=== PATIENT | male | born 1970 | race Caucasian/White ===

== ENCOUNTER 2020-07-07 10:42 | Outpatient (CLI) | payer BC, SELFPAY ==
--- NOTE | ~2020-07-07 | US_ITS ---
US abdomen complete EXAMINATION: US Abdomen Complete INDICATION: Nausea, vomiting and diarrhea. Weight loss. Loss of appetite. PROCEDURE: Realtime High Resolution abdomen ultrasound. COMPARISON: No prior studies for comparison FINDINGS: Gallbladder within normal limits. No gallstones, pericholecystic fluid, gallbladder wall t hickening or biliary dilatation. There is a 3 mm gallbladder polyp. Common bile duct measures mm. Liver echotexture within normal limits without focal mass. Pancreas within normal limits. Pancreati c tail is obscured by bowel gas. Spleen is unremarkeable. Renal echotexture is within normal limits bilaterally without hydronephrosis, contour deforming mass or renal stone. Right kidney measures 11 c m. Left kidney measures 11.9 cm. Visualized aspects of the aorta and IVC are within normal limits. Portal vein is patent. No sonograph ic Mccracken's sign indicated by the technologist. IMPRESSION: 1: 3 mm gallbladder polyp. Reviewed, dictated and finalized at location A. GO MIXER IMPRESSION: 1: 3 mm gallbladder polyp.
== END 2020-07-07 10:43 ==
PROVIDERS: PCP Nurse Practitioner Family; Visit Provider Nurse Practitioner Family
DX: R11.2 Nausea with vomiting, unspecified (principal); R19.7 Diarrhea, unspecified; K82.4 Cholesterolosis of gallbladder
CPT/HCPCS: 76700

== ENCOUNTER 2020-08-06 07:32 | Outpatient (CLI) | payer BC, SELFPAY ==
--- NOTE | ~2020-08-06 | CT_ITS ---
EXAMINATION: CT abdomen wo con DATE: 08/06/2020 08:23 INDICATION: Nausea, vomiting, diarrhea and weight loss TECHNIQUE: Computed tomography (CT) of the abdomen was performed without intravenous contrast. Automa esdras exposure control and iterative reconstruction technique were employed. Exam dose: 362.81 mGy-cm total exam DLP. COMPARISON: 07/07/2020 limited abdominal ultrasound examination FINDINGS: There is a 3 mm posterolateral right lower lobe pleural-based opacity (series 4 image 18). There is a 2.6 x 5 mm pleura-based opacity in the anterolateral right lower lobe (image 23). There is a pleural-based posteromedial right lower lobe paraspinal 7.6 mm soft tissue lung mass (imag e 24). No infiltrate or consolidation is noted in the lower lung zones. Normal heart size. No pericardial or pleural effusion. The liver, gallbladder, bile ducts, pancreas, pancreatic duct, spleen, and adrenal glands and kidneys are unremarkable on this limited noncontrast examination. No urinary tract calculus or hydroureteron ephrosis is evident. Normal caliber of the abdominal aorta. No bowel obstruction, bowel wall thickening, pneumatosis or intraperitoneal free air is detected. There is a very small fat-containing umbilical hernia. Included skeletal structures are unremarkable. IMPRESSION: Several right lower lobe pleural-based small opacities are noted. If there are no risk f actors such as smoking or radon exposure, consider [address] chest follow-up. If there are positive risk factors, [address] chest follow-up is recommended. Reviewed, dictated and finalized at Location A. Reviewed, dictated and finalized at location B. DESK ASSOCIATE IMPRESSION: Several right lower lobe pleural-based small opacities are noted. If there are no risk factors such as smoking or radon exposure, consider [address] chest follow-up. If there are positive risk factors, [address] chest fol low-up is recommended.
== END 2020-08-06 07:33 ==
PROVIDERS: PCP Nurse Practitioner Family; Visit Provider Nurse Practitioner Family
DX: R11.2 Nausea with vomiting, unspecified (principal); R91.8 Other nonspecific abnormal finding of lung field
CPT/HCPCS: 74150

== ENCOUNTER 2024-10-06 14:44 | Emergency (ER) | payer OTHER, SELFPAY ==
--- NOTE | ~2024-10-06 | CT_ITS ---
CT abdomen pelvis w con Ordering provider: José Goodman MD History: 53 years Male with . Abdominal pain . Comparison: August 06, 2023 Technique: CT abdomen and pelvis with IV and without oral contrast. Automated exposure control and it erative reconstruction technique were employed. The dose-length product was 940.26 mGy-cm. 100 mL Omn ipaque 350 was given IV. Findings: VISUALIZED LOWER CHEST: Nodule in the right lower lobe medially measuring 8 mm. 7 mm nodule also seen in the lingula. 3 months follow-up CT is advised. Dependent atelectatic changes. UPPER ABDOMINAL ORGANS: Liver: Normal. Gallbladder: Normal. Spleen: Normal. Stomach/duodenum: Normal. Pancreas: Normal. Adrenals: Normal. Kidneys: 9 mm cyst is seen in the left kidney midpole. Tiny cysts are also seen in the right kidney u pper pole with the largest measures 1 cm. Tiny cysts also seen in the right mid and lower pole. PELVIC ORGANS: The bladder is underfilled. Thickened wall is seen. Evaluation for cystitis advised. BOWEL AND MESENTERY: Colon: No evidence of diverticulitis. No evidence of appendicitis. Small Bowel: Normal. No obstruction. Peritoneum/mesentery: No free air or free fluid. No mesenteric lymphadenopathy. Small mesenteric lymp h nodes are noted. RETROPERITONEUM: Normal aorta. No retroperitoneal lymphadenopathy. MUSCULOSKELETAL: Superficial soft tissues: The superficial soft tissues are normal. Bones: Age appropriate degenerative changes of the spine. IMPRESSION: 1. No evidence of appendicitis, diverticulitis or intestinal obstruction. 2. Lung nodules with the largest measures 8 mm. 3 months follow-up CT in 6 months advised. Reviewed, dictated and finalized at location A. OWNED SALES CONSULTANT IMPRESSION: 1. No evidence of appendicitis, diverticulitis or intestinal obstruction. 2. Lung nodules with the largest measures 8 mm. 3 months follow-up CT in 6 mon ths advised.
[2024-10-06 14:56] LABS: Glucose Point of Care 111 mg/dl (65-105)
[2024-10-06 15:15] VITALS: BP 171/102; PULSE 84; RESP 18; TEMP 36.6; O2SAT 98
--- OUTSIDE RECORDS SUMMARY | 2024-10-06 16:05 | XMS_ITS | Clinical Summary ---
Author Organization [facility] Address [address] [place] [address] Care Team Providers Care Therapist Physical Name Role Phone Unavailable Primary Care Provider Unavailabl e Source Comments [facility],non-owned Affiliates and Associated Physician Practices is amultiple site organization consisting of ambulatory clinics and hospital sitesin [place], [place], [place] and [place]. This disclosure is being madepursuant to the Care Everywhere program and may not contain all information available regarding this patient. Last updated 18.[facility] Allergies No known active allergies Medications * Be aware that medications may not be up to date on this document. Alwaysverify current medications with the patient. Medication Sig Dispensed Refills Start Date End Date Status ondansetron (ZOFRAN) 4 MG tablet Take 1 (one) tablet by mouth every 6 hours as needed for Nausea/Vomiting 60 tablet 3 11/20/2020 Active Active Problems Problem Noted Date Diagnosed Date Loss of weight 11/20/2020 Nausea & vomiting 11/20/2020 Resolved Problems Problem Noted Date Diagnosed Date Resolved Date Diarrhea 11/20/2020 12/18/2020 Family History Medical History Relation Name Comments COPD - Chronic Obstructive Pulmonary Disease Father 57 COPD - Chronic Obstructive Pulmonary Disease Mother 68 Drug Abuse Sister 30 Relation Name Status Comments Daughter 21 Alive Father 57 Maternal Grandfather Maternal Grandmother Mother 68 Paternal Grandfather Paternal Grandmother Sister 30 Son 30 Alive Social History Tobacco Use Types Packs/Day Years Used Date Smoking Tobacco: Never Smokeless Tobacco: Never Tobacco Cessation:Counseling Given: No Alcohol Use Standard Drinks/Week Comments Never 0 (1 standard drink = 0.6 oz pur e alcohol) STOPPED DRINKING 3 YRS AGO Sex and Gender Information Value Date Recorded Sex Assigned at Not on file Gender Identity Not on file Sexual Orientation Not on file Last Filed Vital Signs Vital Sign Reading Time Taken Comments Blood Pressure 118/76 11/20/2020 9:15 AM CDT Pulse 53 11/20/2020 9:15 AM CDT Temperature 36.8 C (98.2 F) 11/20/2020 9:15 AM CDT Respiratory Rate 16 11/20/2020 9:15 AM CDT Oxygen Saturation 97% 11/20/2020 9:15 AM CDT Inhaled Oxygen Concentration - - Weight 85 kg (187 lb 4.8 oz) 11/20/2020 9:15 AM CDT Height 180.3 cm (5' 11 ) 11/20/2020 9:15 AM CDT Body Mass Index 26.12 11/20/2020 9:15 AM CDT Plan of Treatment Health Maintenance Due Date Last Done Comments COLOGUARD (AGES 45-75) - COL ON CA SCREENING 1972 COLON MONITORING 1972 COLONOSCOPY - COLON CA SCREENING 1972 CT COLONOGRAPHY - COLON CA SCREENING 1972 Colorectal Cancer Screening 1972 FIT - COLON CA SCREENING 1972 FLEX SIG - COLON CA SCREENING 1972 LIPID TESTING 1972 HIV SCREENING 10/23/1987 HEPATITIS C SCREENING 10/18/1990 DTAP/TDAP/TD VACCINES (1 - Tdap) 10/23/1991 HEPATITIS B VACCINE (1 of 3 - 19+ 3-dose series) 10/23/1991 PNEUMOCOCCAL VACCINE 50+ (1 of 1 - PCV) 2022 ZOSTER VACCINE (1 of 2) 2022 SCREENING FOR DIABETES 11/21/2023 11/20/2020 COVID-19 VACCINE (1 - 2023-2 5 season) 2024 INFLUENZA VACCINE (#1) 2024 06/26/2020 DEPRESSION SCREENING 08/03/2024 HIB VACCINE Aged Out No longer eligi ble based on patient's age to complete this topic HPV VACCINE Aged Out No longer eligi ble based on patient's age to complete this topic MENINGOCOCCAL (Group B) VACCINE Aged Out No longer eligible based on patient's age to complete this topic MENINGOCOCCAL VACCINE Aged Out No berenice leah eligible based on patient's age to complete this topic PNEUMOCOCCAL VACCINE Aged Out No long er eligible based on patient's age to complete this topic Procedures Procedure Name Priority Date/Time Associated Diagnosis Comments COMPREHENSIVE METABOLIC PANEL Routine 11/20/2020 10:50 AM CDT Loss of weight Abdominal pain, unspecified abdominal location Nausea and vomiting, intractability of vomiting not specified, unspecified vomiting type from Last 3 Months or Most Recently Relevant to Health Maintenance Results * COMPREHENSIVE METABOLIC PANEL (11/20/2020 10:50 AM CDT) Pathologist [facility] Glucose 103 65 - 139 mg/dL [facility] Comment: Non-fasting reference interval BUN 8 7 - 25 mg/dL [facility] Creatinine 0.75 0.60 - 1.35 mg/dL [facility] eGFR by MDRD 108 > OR = 60 mL/min/1 .73m2 [facility] eGFR by MDRD 126 > OR = 60 mL/min/1 .73m2 [facility] BUN/Creatinine Ratio NOT APPLICABLE 6 - 22 (calc) [facility] Sodium 138 135 - 146 mmol/L [facility] Potassium 4.6 3.5 - 5.3 mmol/L [facility] Chloride 105 98 - 110 mmol/L [facility] CO2 29 20 - 32 mmol/L [facility] Calcium 9.4 8.6 - 10.3 mg/dL [facility] Protein Total 6.9 6.1 - 8.1 g/dL [facility] Albumin 4.5 3.6 - 5.1 g/dL [facility] Globulin Total 2.4 1.9 - 3.7 g/dL (calc) [facility] Albumin/Globulin Ratio 1.9 1.0 - 2.5 (calc) [facility] Bilirubin Total 0.5 0.2 - 1.2 mg/dL [facility] Alkaline Phosphatase 51 36 - 130 U/L [facility] AST 18 10 - 40 U/L [facility] ALT 20 9 - 46 U/L [facility] Comment: Test Performed at: [employer] [address] GEOFF CUETO MD Blood BLOOD SPECIMEN / Unknown 11/20/2020 10:50 AM CDT 11/20/2020 10:54 AM CDT Bonnie Juarez PA-C LAB - CHEMISTRY O RDERABLES [address] [address] from Last 3 Months or Most Recently Relevant to Health Maintenance
--- OUTSIDE RECORDS SUMMARY | 2024-10-06 16:05 | XMS_ITS | Referral Summary ---
Author Organization [facility] Address [address] [place] [address] Care Team Providers Care Ivory Carver Name Role Phone Unavailable Primary Care Provider Unavailabl e Source Comments [facility],non-owned Affiliates and Associated Physician Practices is amultiple site organization consisting of ambulatory clinics and hospital sitesin [place], [place], [place] and [place]. This disclosure is being madepursuant to the Care Everywhere program and may not contain all information available regarding this patient. Last updated 18.[facility] Allergies No known active allergies Medications * [...] Diagnosed Date Resolved Date Diarrhea 11/20/2020 12/18/2020 Social History Tobacco Use Types Packs/Day Years [...] 11/20/2020 9:15 AM CDT Plan of Treatment Not on file Procedures Procedure Name Priority Date/Time Associated Diagnosis Comments COMPREHENSIVE METABOLIC PANEL Routine 11/20/2020 10:50 AM CDT Loss of weight Abdominal pain, unspecified abdominal location Nausea and vomiting, intractability of vomiting not specified, unspecified vomiting type from Last 3 Months or Most Recently Relevant to Health Maintenance Results * COMPREHENSIVE METABOLIC PANEL (11/20/2020 10:50 AM CDT) Glucose 103 65 - 139 mg/dL [facility] [...] 46 U/L [facility] Comment: Test Performed at: [facility] [address] GEOFF CUETO MD Blood BLOOD SPECIMEN / Unknown 11/20/2020 10:50 AM CDT 11/20/2020 10:54 AM CDT Bonnie Juarez PA-C LAB - CHEMISTRY O RDERABLES [facility] [address] [place] [address] from Last 3 Months or Most Recently Relevant to Health Maintenance
--- OUTSIDE RECORDS SUMMARY | 2024-10-06 16:05 | XMS_ITS | CONTINUITY OF CARE DOCUMENT ---
Author Name guerda croft Address Unknown Organization [facility] Address [address] [place] [address] Phone [phone] Care Team Providers Care Rotary Cutter Name Role Phone Neel LOGAN, Lara Unavailable [phone] JOSUE RING MD Unavailable INS[employer] Payer name Policy type / Coverage type [place] red green party ID [id number] PAY [id number]
--- OUTSIDE RECORDS SUMMARY | 2024-10-06 16:05 | XMS_ITS | Patient Health Summary ---
Author Organization [facility] Address [address] [place] [address] Care Team Providers Care Cage Maker Machine Name Role Phone Unavailable Primary Care Provider Unavailabl e Note from [facility],non-owned Affiliates and Associated Physician Practices is amultiple site organization consisting of ambulatory clinics and hospital sitesin [place], [place], [place] and [place]. This disclosure is being madepursuant to the Care Everywhere program and may not contain all information available regarding this patient. Last updated 18.[facility] Allergies No known active allergies Medications * Be aware that medications may not be up to date on this document. Alwaysverify current medications with the patient. * ondansetron (ZOFRAN) 4 MG tablet(Started 11/20/2020) Take 1 (one) tablet by mouth every 6 hours as needed for Nausea/Vomiting 3 refills by 11/20/2021 Active Problems Problem Noted Date Diagnosed Date [...] Mass Index 26.12 11/20/2020 9:15 AM CDT Procedures * VITAMIN B12 FOLATE PANEL(Performed 11/20/2020) Performed for Loss of weight, Abdominal pain, unspecified abdominal location, Nausea and vomiting, intractability of vomiting not specified, unspecified vomiting type, Diarrhea, unspecified type * IRON + TIBC + FERRITIN(Performed 11/20/2020) Performed for Loss of weight, Abdominal pain, unspecified abdominal location, Nausea and vomiting, intractability of vomiting not specified, unspecified vomiting type, Diarrhea, unspecified type * AMYLASE BLOOD(Performed 11/20/2020) Performed for Loss of weight, Abdominal pain, unspecified abdominal location, Nausea and vomiting, intractability of vomiting not specified, unspecified vomiting type * TISSUE TRANSGLUTAMINASE AB IGA(Performed 11/20/2020) Performed for Loss of weight, Abdominal pain, unspecified abdominal location, Nausea and vomiting, intractability of vomiting not specified, unspecified vomiting type * IGA BLOOD(Performed 11/20/2020) Performed for Loss of weight, Abdominal pain, unspecified abdominal location, Nausea and vomiting, intractability of vomiting not specified, unspecified vomiting type * ERYTHROCYTE SEDIMENTATION RATE(Performed 11/20/2020) Performed for Loss of weight, Abdominal pain, unspecified abdominal location, Nausea and vomiting, intractability of vomiting not specified, unspecified vomiting type * C-REACTIVE PROTEIN(Performed 11/20/2020) Performed for Loss of weight, Abdominal pain, unspecified abdominal location, Nausea and vomiting, intractability of vomiting not specified, unspecified vomiting type * COMPREHENSIVE METABOLIC PANEL(Performed 11/20/2020) Performed for Loss of weight, Abdominal pain, unspecified abdominal location, Nausea and vomiting, intractability of vomiting not specified, unspecified vomiting type * CBC W AUTO DIFFERENTIAL(Performed 11/20/2020) Performed for Loss of weight, Abdominal pain, unspecified abdominal location, Nausea and vomiting, intractability of vomiting not specified, unspecified vomiting type Results * IRON + TIBC + FERRITIN (11/20/2020 10:50 AM CDT) Pathologist [facility] Iron 106 50 - 180 mcg/dL [facility] TIBC 394 250 - 425 mcg/dL (calc) [facility] % Saturation 27 20 - 48 % (calc) [facility] Ferritin 43 38 - 380 ng/mL [facility] Comment: Test Performed at: [employer] [facility] [place] [address] [place] [address] JASEN NAIK DO,MPH Blood BLOOD SPECIMEN / Unknown 11/20/2020 10:50 AM CDT 11/20/2020 10:52 AM CDT Bonnie Juarez PA-C LAB - CHEMISTRY O RDERABLES Performing Organization Address [facility] Co de Phone Number [address] [address] * (ABNORMAL) TISSUE TRANSGLUTAMINASE AB IGA (11/20/2020 10:50 AM CDT) [facility] TTG Antibody IgA 4(H) <4 U/mL [facility] Comment: Value Interpretation <4 U/mL: No Antibody Detected >or=4 U/mL: Antibody Detected Test Performed at: [employer]/[facility] [id number] [place] [id number] JONATHAN CARVAJAL MD,PHD Blood BLOOD SPECIMEN / Unknown 11/20/2020 10:50 AM CDT 11/20/2020 10:54 AM CDT Bonnie Juarez PA-C LAB - SEROLOGY OR DERABLES Performing Organization Address [facility] Co de Phone Number [address] [address] * C-REACTIVE PROTEIN (11/20/2020 10:50 AM CDT) [facility] C-Reactive Protein <5.0 <8.0 mg/L [facility] Comment: Test Performed at: [employer] [facility] [address] GEOFF CUETO MD Blood BLOOD SPECIMEN / Unknown 11/20/2020 10:50 AM CDT 11/20/2020 10:54 AM CDT Bonnie Juarez PA-C LAB - CHEMISTRY O RDERABLES Performing Organization Address [facility] de Phone Number [address] [address] * ERYTHROCYTE SEDIMENTATION RATE (11/20/2020 10:50 AM CDT) Pathologist [facility] Erythrocyte Sedimentation Rate Westergren 8 < OR = 15 mm/h [facility] Comment: Test Performed at: [employer] [facility] [address] GEOFF CUETO MD Blood BLOOD SPECIMEN / Unknown 11/20/2020 10:50 AM CDT 11/20/2020 10:54 AM CDT Bonnie Juarez PA-C LAB - HEMATOLOGY ORDERABLES Performing Organization Address [facility] de Phone Number [address] [address] * CBC WITH DIFFERENTIAL (11/20/2020 10:50 AM CDT) Pathologist [facility] White Blood Cell Count 4.2 3.8 - 10.8 Thousand/u L [facility] RBC 4.84 4.20 - 5.80 Million/uL [facility] Hemoglobin 14.5 13.2 - 17.1 g/dL [facility] Hematocrit 44.2 38.5 - 50.0 % [facility] MCV 91.3 80.0 - 100.0 fL [facility] MCH 30.0 27.0 - 33.0 pg [facility] MCHC 32.8 32.0 - 36.0 g/dL [facility] RDW 12.6 11.0 - 15.0 % [facility] Platelet Count 305 140 - 400 Thousand/u L [facility] MPV 9.8 7.5 - 12.5 fL [facility] Neutrophil Absolute 2822 1500 - 7800 cells/uL [facility] Lymphocytes Absolute 983 850 - 3900 cells/uL [facility] Absolute Monocytes 319 200 - 950 cells/uL [facility] Eosinophils Absolute 38 15 - 500 cells/uL [facility] Basophils Absolute 38 0 - 200 cells/uL [facility] Granulocytes % 67.2 % [facility] Lymphocytes % 23.4 % [facility] Monocytes % 7.6 % [facility] Eosinophils % 0.9 % [facility] Basophils % 0.9 % [facility] Comment: Test Performed at: [facility] [address] GEOFF CUETO MD Blood BLOOD SPECIMEN / Unknown 11/20/2020 10:50 AM CDT 11/20/2020 10:54 AM CDT Bonnie Juarez PA-C LAB - HEMATOLOGY ORDERABLES [address] [address] * COMPREHENSIVE METABOLIC PANEL (11/20/2020 10:50 AM [...] 46 U/L [facility] Comment: Test Performed at: [facility] [address] GEOFF CUETO MD Blood BLOOD SPECIMEN / Unknown 11/20/2020 10:50 AM CDT 11/20/2020 10:54 AM CDT Bonnie Juarez PA-C LAB - CHEMISTRY O RDERABLES Performing Organization Address [facility] Co de Phone Number [facility] [id number] [place] [address] * VITAMIN B12 FOLATE PANEL (11/20/2020 10:50 AM CDT) Vitamin B12 311 200 - 1100 pg/mL [facility] Comment: Please Note: Although the reference range for vitamin B12 is 200-1100 pg/mL, it has been reported that between 5 and 10% of patients with values between 200 and 400 pg/mL may experience neuropsychiatric and hematologic abnormalities due to occult B12 deficiency; less than 1% of patients with values above 400 pg/mL will have symptoms. Folate 16.2 ng/mL [facility] Comment: Reference Range Low: <3.4 Borderline: 3.4-5.4 Normal: >5.4 REPORT COMMENT: FASTING:NO Test Performed at: [facility] [place] [address] [place] [address] JASEN NAIK DO,MPH Blood BLOOD SPECIMEN / Unknown 11/20/2020 10:50 AM CDT 11/20/2020 10:52 AM CDT Bonnie Juarez PA-C LAB - CHEMISTRY O RDERABLES Performing Organization Address [facility] de Phone Number [facility] [address] [place] [address] * AMYLASE BLOOD (11/20/2020 10:50 AM CDT) Amylase 35 21 - 101 U/L [facility] Comment: REPORT COMMENT: FASTING:NO Test Performed at: [facility] [address] GEOFF CUETO MD Blood BLOOD SPECIMEN / Unknown 11/20/2020 10:50 AM CDT 11/20/2020 10:54 AM CDT Bonnie Juarez PA-C LAB - CHEMISTRY O RDERABLES Performing Organization Address [facility] Co de Phone Number [facility] [address] [place] [address] * IGA BLOOD (11/20/2020 10:50 AM CDT) IgA 195 47 - 310 mg/dL [facility] Comment: Test Performed at: [facility] [address] [address] JASEN NAIK DO,MPH Blood BLOOD SPECIMEN / Unknown 11/20/2020 10:50 AM CDT 11/20/2020 10:54 AM CDT Bonnie Juarez PA-C LAB - CHEMISTRY O RDERABLES [facility] [address] [place] [address]
[2024-10-06 17:29] VITALS: BP 147/102; PULSE 71; TEMP 36.6; O2SAT 96
[2024-10-06 19:41] LABS: Eosinophils Absolute Auto 0.1 K/mm3 (0-0.3); Eosinophils Percent Auto 1.9 % (0-4.4); Hematocrit 42.1 % (42.0-52.0); Hemoglobin 14.2 g/dL (14.0-18.0); Immature Granulocyte Absolute 0.01 K/mm3 (0.00-0.031); Immature Granulocyte Percent A 0.2 % (0-0.5); Lymphocytes Absolute Auto 1.69 K/mm3 (0.9-3.2); Lymphocytes Percent Auto 40.3 % (18.3-44.2); Mean Corpuscular HGB Conc 33.7 g/dl (32-36); Mean Corpuscular Hemoglobin 31.6 pg (26-34); Mean Corpuscular Volume 93.6 fl (80-100); Mean Platelet Volume 9.3 fl (7.4-10.4); Monocytes Absolute Auto 0.3 K/mm3 (0.1-0.6); Monocytes Percent Auto 7.2 % (2.6-8.5); Neutrophils Absolute Auto 2.1 K/mm3 (1.3-6.7); Neutrophils Percent Auto 49.4 % (45.5-73.1); Platelet Count Result 254 k/mm3 (150-375); Red Cell Distribution Width 12.6 % (11.5-14.5); White Blood Count 4.2 K/mm3 (4.5-10.0)
[2024-10-06 19:51] LABS: Alanine Aminotransferase 32 U/L (6-50); Albumin Level 4.4 g/dL (3.5-5.1); Alkaline Phosphatase 65 U/L (38-126); Anion Gap 13 mmol/L (4-12); Aspartate Amino Transferase 27 U/L (17-59); Blood Urea Nitrogen 16 mg/dL (9-20); Calcium 9.5 mg/dL (8.4-10.2); Carbon Dioxide 25 mmol/L (22-30); Chloride 100 mmol/L (98-107); Estimated CRCL calculation 97 ml/min; Estimated Glomerular Filt Rate > 60; Glucose 164 mg/dL (65-110); Lipase 74 U/L (23-300); Potassium 3.9 mmol/L (3.4-5.0); Sodium 138 mmol/L (137-145)
[2024-10-06 19:56] VITALS: BP 151/94; PULSE 72; RESP 12; TEMP 36.5; O2SAT 98
[2024-10-06 19:58] LABS: Add Urine Microscopic? NO; Appearance Urine Clear (Clear); Bilirubin Urine Negative (Negative); Blood Urine Negative (Negative); Color Urine Yellow (Yellow); Glucose Urine UA Negative (Negative); Ketones Urine Trace mg/dL (Negative); Leukocyte Esterase Ur Negative LEU/UL (Negative); Nitrate Urine Negative (Negative); Protein Urine Negative (Negative); Specific Grav Ur 1.026 (1.001-1.035); Urobilinogen Urine 0.2 mg/dL (<2.0)
--- OUTSIDE RECORDS SUMMARY | 2024-10-06 20:49 | XMS_ITS | Referral Summary ---
Author Organization [facility] [facility] Address [address] [place] [address] Care Team Providers Care Credit Card Control Clerk Name Role Phone Unavailable Primary Care Provider Unavailabl e Source Comments [facility],non-owned Affiliates and Associated Physician Practices is amultiple site organization consisting of ambulatory clinics and hospital sitesin [place], [place], [place] and [place]. This disclosure is being madepursuant to the Care Everywhere program and may not contain all information available regarding this patient. Last updated 18.[facility] Allergies No known active allergies Medications * [...] 46 U/L [facility] Comment: Test Performed at: [employer] [address] GEOFF CUETO MD Blood BLOOD SPECIMEN / Unknown 11/20/2020 10:50 AM CDT 11/20/2020 10:54 AM CDT Bonnie Juarez PA-C LAB - CHEMISTRY O RDERABLES [facility] [address] [place] [address] from Last 3 Months or Most Recently Relevant to Health Maintenance
--- OUTSIDE RECORDS SUMMARY | 2024-10-06 20:49 | XMS_ITS | Clinical Summary ---
Author Organization [facility] [employer] Address [address] [place] [address] Care Team Providers Care Observer Electrical Prospecting Name Role Phone Unavailable Primary Care Provider Unavailabl e Source Comments [facility],non-owned Affiliates and Associated Physician Practices is amultiple site organization consisting of ambulatory clinics and hospital sitesin [place], [place], [place] and [place]. This disclosure is being madepursuant to the Care Everywhere program and may not contain all information available regarding this patient. Last updated 18.[facility] Allergies No known active allergies Medications * [...] METABOLIC PANEL (11/20/2020 10:50 AM CDT) Pathologist [facility] Glucose 103 65 - 139 mg/dL [facility] [...] 46 U/L [facility] Comment: Test Performed at: [employer] [address] GEOFF CUETO MD Blood BLOOD SPECIMEN / Unknown 11/20/2020 10:50 AM CDT 11/20/2020 10:54 AM CDT Bonnie Juarez PA-C LAB - CHEMISTRY O RDERABLES [address] [address] from Last 3 Months or Most Recently Relevant to Health Maintenance
--- OUTSIDE RECORDS SUMMARY | 2024-10-06 20:49 | XMS_ITS | Patient Health Summary ---
Author Organization [facility] Address [address] [place] [address] Care Team Providers Care Catalyst Operator Name Role Phone Unavailable Primary Care Provider Unavailabl e Note from [facility],non-owned Affiliates and Associated Physician Practices is amultiple site organization consisting of ambulatory clinics and hospital sitesin [place], [place], [place] and [place]. This disclosure is being madepursuant to the Care Everywhere program and may not contain all information available regarding this patient. Last updated 18.[facility] Allergies No known active allergies Medications [...] FERRITIN (11/20/2020 10:50 AM CDT) Pathologist [facility] [place] Iron 106 50 - 180 mcg/dL [facility] TIBC 394 250 - 425 mcg/dL (calc) [facility] % Saturation 27 20 - 48 % (calc) [facility] Ferritin 43 38 - 380 ng/mL [facility] Comment: Test Performed at: [facility] [place] [address] [place] [address] JASEN NAIK DO,MPH Blood BLOOD SPECIMEN / Unknown 11/20/2020 10:50 AM CDT 11/20/2020 10:52 AM CDT Bonnie Juarez PA-C LAB - CHEMISTRY O RDERABLES Performing Organization Address [facility] Co de Phone Number [address] [address] * (ABNORMAL) TISSUE TRANSGLUTAMINASE AB IGA (11/20/2020 10:50 AM CDT) [facility] TTG Antibody IgA 4(H) <4 U/mL [facility] Comment: Value Interpretation <4 U/mL: No Antibody Detected >or=4 U/mL: Antibody Detected Test Performed at: [facility] [id number] [place] [phone] JONATHAN CARVAJAL MD,PHD Blood BLOOD SPECIMEN / Unknown 11/20/2020 10:50 AM CDT 11/20/2020 10:54 AM CDT Bonnie Juarez PA-C LAB - SEROLOGY OR DERABLES Performing Organization Address [facility] Co de Phone Number [address] [address] * C-REACTIVE PROTEIN (11/20/2020 10:50 AM CDT) [facility] C-Reactive Protein <5.0 <8.0 mg/L [facility] Comment: Test Performed at: [facility] [address] GEOFF CUETO MD Blood BLOOD SPECIMEN / Unknown 11/20/2020 10:50 AM CDT 11/20/2020 10:54 AM CDT Bonnie Juarez PA-C LAB - CHEMISTRY O RDERABLES Performing Organization Address [email or web address] de Phone Number [address] [address] * ERYTHROCYTE SEDIMENTATION RATE (11/20/2020 10:50 AM CDT) Pathologist [facility] [place] Erythrocyte Sedimentation Rate Westergren 8 < OR = 15 mm/h [facility] Comment: Test Performed at: [email or web address] [address] GEOFF CUETO MD Blood BLOOD SPECIMEN / Unknown 11/20/2020 10:50 AM CDT 11/20/2020 10:54 AM CDT Bonnie Juarez PA-C LAB - HEMATOLOGY ORDERABLES Performing Organization Address [email or web address]] de Phone Number [address] [address] * CBC WITH DIFFERENTIAL (11/20/2020 10:50 AM CDT) Pathologist [facility] [place] White Blood Cell Count 4.2 3.8 - [...] 0.9 % [facility] Comment: Test Performed at: [facility] [address] GEOFF CUETO MD Blood BLOOD SPECIMEN / Unknown 11/20/2020 10:50 AM CDT 11/20/2020 10:54 AM CDT Bonnie Juarez PA-C LAB - HEMATOLOGY ORDERABLES [address] [address] * COMPREHENSIVE METABOLIC PANEL (11/20/2020 10:50 AM [...] 46 U/L [facility] Comment: Test Performed at: [email or web address] [address] GEOFF CUETO MD Blood BLOOD SPECIMEN / Unknown 11/20/2020 10:50 AM CDT 11/20/2020 10:54 AM CDT Bonnie Juarez PA-C LAB - CHEMISTRY O RDERABLES Performing Organization Address [facility] Co de Phone Number [facility] [id number] [place] [address] * VITAMIN B12 FOLATE PANEL (11/20/2020 10:50 [...] >5.4 REPORT COMMENT: FASTING:NO Test Performed at: [facility] [place] [address] [place] [address] JASEN NAIK DO,MPH Blood BLOOD SPECIMEN / Unknown 11/20/2020 10:50 AM CDT 11/20/2020 10:52 AM CDT Bonnie Juarez PA-C LAB - CHEMISTRY O RDERABLES Performing Organization Address [facility] [[email or web address]] de Phone Number [facility] [address] [place] [address] * AMYLASE BLOOD (11/20/2020 10:50 AM CDT) Amylase 35 21 - 101 U/L [facility] Comment: REPORT COMMENT: FASTING:NO Test Performed at: [facility] [address] GEOFF CUETO MD Blood BLOOD SPECIMEN / Unknown 11/20/2020 10:50 AM CDT 11/20/2020 10:54 AM CDT Bonnie Juarez PA-C LAB - CHEMISTRY O RDERABLES Performing Organization Address [facility] Co de Phone Number [facility] [address] [place] [address] * IGA BLOOD (11/20/2020 10:50 AM CDT) IgA 195 47 - 310 mg/dL [facility] Comment: Test Performed at: [facility] [address] [place] [address] JASEN NAIK DO,MPH Blood BLOOD SPECIMEN / Unknown 11/20/2020 10:50 AM CDT 11/20/2020 10:54 AM CDT Bonnie Juarez PA-C LAB - CHEMISTRY O RDERABLES [facility] [address] [place] [address]
--- OUTSIDE RECORDS SUMMARY | 2024-10-06 20:49 | XMS_ITS | CONTINUITY OF CARE DOCUMENT ---
Author Name guerda croft Address Unknown Organization [facility] Address [address] [place] [address] Phone [phone] Care Team Providers Care Arcade Technician Name Role Phone Neel LOGAN, Lara Unavailable [phone] JOSUE RING MD Unavailable INSURANCE PROVIDERS Payer name Policy type / Coverage type [place] [employer] republican ID SELF PAY [id number]
--- NOTE | 2024-10-06 22:00 | ED.GENADULT ---
HPI - General Adult General Chief complaint: Abdominal Pain Stated complaint: ABD PAIN Time Seen by Provider: 10/06/24 19:26 History of Present Illness HPI narrative: Patient 53-year-old gentleman presents emergency department with chief complaint left upper quadrant pain. Patient reports that he has been having discomfort for some time but got worse over the last couple of days the patient states that he has had some loose stools and nausea as well patient denies fever reports no prior abdominal surgical history. Patient does report increased thirst and increased urination Related Data Allergies Allergy/AdvReac Type Severity Reaction Status Date / Time No Known Allergies Allergy Mild Verified 10/06/24 19:58 Review of Systems Review of Systems: A 10 system review of systems was completed on the patient and is negative except for what is stated in the HPI. Nursing and ancillary documentation was reviewed. Course Course Emergency Course: GENERAL: Well-appearing, well-nourished, and in no acute distress. HEAD: Normocephalic, atraumatic. EYES: PERRLA and EOMI. ENT: Nares clear, no rhinorrhea or epistaxis. Mucous membranes moist. NECK: Supple. CHEST: Clear to auscultation. No respiratory distress. HEART: Regular rate and rhythm. No murmur heard. Normal peripheral pulses. ABDOMEN: Soft, mild tenderness to palpation left upper quadrant, nondistended, normal active bowel sounds. EXTREMITIES: Normal range of motion. No edema. SKIN: Warm, dry, no rash. NEURO: No focal deficits. Alert and oriented x3. PSYCH: Normal mood and affect. Vital Signs Vital signs: Vital Signs Temperature 36.6 C 10/06/24 15:15 Pulse Rate 84 10/06/24 15:15 Respiratory Rate 18 10/06/24 15:15 Blood Pressure 171/102 H 10/06/24 15:15 Pulse Oximetry 98 10/06/24 15:15 Temperature 36.5 C 10/06/24 19:56 Pulse Rate 72 10/06/24 19:56 Respiratory Rate 12 10/06/24 19:56 Blood Pressure 151/94 H 10/06/24 19:56 Pulse Oximetry 98 10/06/24 19:56 Medical Decision Making [facility] Narrative Medical decision making narrative: Differential diagnosis includes intra-abdominal infection, edema colitis, pancreatitis Laboratory studies were obtained on the patient showed normal CBC normal CMP glucose was 111 on point care 164 on where his electrolytes. Patient had a gap is 13 CO2 was [address] scan of the abdomen pelvis showed no acute abnormality I facial were some pulmonary nodules present the radiology recommended follow-up. Vital Signs Vital Signs: Vital Signs Temperature 36.6 C 10/06/24 15:15 Pulse Rate 84 10/06/24 15:15 Respiratory Rate 18 10/06/24 15:15 Blood Pressure 171/102 H 10/06/24 15:15 Pulse Oximetry 98 10/06/24 15:15 Temperature 36.5 C 10/06/24 19:56 Pulse Rate 72 10/06/24 19:56 Respiratory Rate 12 10/06/24 19:56 Blood Pressure 151/94 H 10/06/24 19:56 Pulse Oximetry 98 10/06/24 19:56 Lab Data 10/06/24 19:35 10/06/24 19:35 Labs: Lab Results 10/06/24 10/06/24 10/06/24 Range/Units 14:53 19:35 19:46 WBC 4.2 L (4.5-10.0) K/mm3 RBC 4.50 L (4.6-6.20) M/mm3 Hgb 14.2 (14.0-18.0) g/dL Hct 42.1 (42.0-52.0) % MCV 93.6 (80-100) fl MCH 31.6 (26-34) pg MCHC 33.7 (32-36) g/dl RDW 12.6 (11.5-14.5) % Plt Count 254 (150-375) k/mm3 MPV 9.3 (7.4-10.4) fl Immature Gran % (Auto) 0.2 (0-0.5) % Neut % (Auto) 49.4 (45.5-73.1) % Lymph % (Auto) 40.3 (18.3-44.2) % [place] % (Auto) 7.2 (2.6-8.5) % Eos % (Auto) 1.9 (0-4.4) % Baso % (Auto) 1.0 (0.2-1.2) % Lymph # (Auto) 1.69 (0.9-3.2) K/mm3 [place] # (Auto) 0.3 (0.1-0.6) K/mm3 Eos # (Auto) 0.1 (0-0.3) K/mm3 Baso # (Auto) 0.0 (0.0-0.1) K/mm3 Abs Immat Gran (auto) 0.01 (0.00-0.031) K/mm3 Absolute Neuts (auto) 2.1 (1.3-6.7) K/mm3 Absolute Nucleated RBC 0.000 (0.0-0.012) K/mm3 Nucleated RBC % 0.0 (0.0-0.2) % Sodium 138 (137-145) mmol/L Potassium 3.9 (3.4-5.0) mmol/L Chloride 100 (98-107) mmol/L Carbon Dioxide 25 (22-30) mmol/L Anion Gap 13 H (4-12) mmol/L BUN 16 (9-20) mg/dL Creatinine 0.84 (0.7-1.3) mg/dL Estim Creat Clear Calc 97 ml/min Estimated GFR > 60 (59 - ) Glucose 164 H (65-110) mg/dL POC Capillary Glucose 111 H (65-105) mg/dl Calcium 9.5 (8.4-10.2) mg/dL Total Bilirubin 1.0 (0.2-1.3) mg/dL AST 27 (17-59) U/L ALT 32 (6-50) U/L Alkaline Phosphatase 65 (38-126) U/L Total Protein 7.0 (6.3-8.2) g/dL Albumin 4.4 (3.5-5.1) g/dL Lipase 74 (23-300) U/L Urine Color Yellow (Yellow) Urine Appearance Clear (Clear) Urine pH 5.0 (5.0-9.0) Ur Specific [place] 1.026 (1.001-1.035) Urine Protein Negative (Negative) mg/dL Urine Glucose (UA) Negative (Negative) mg/dL Urine Ketones Trace H (Negative) mg/dL Ur Blood (Man) Negative (Negative) Urine Nitrate Negative (Negative) Urine Bilirubin Negative (Negative) Urine Urobilinogen 0.2 (<2.0) mg/dL Leukocyte Esterase Rfl Negative (Negative) MIGUEL/UL Discharge Plan Discharge Clinical Impression: Abdominal pain, Pulmonary nodule Patient Disposition: Home, Self-Care Condition: Stable Instructions: Antibiotic Form, Abdominal Pain (ED), Pulmonary Nodules (ED) Patient Language: Surinamese Prescriptions: New ondansetron 4 mg tablet,disintegrating 4 mg PO Q8H PRN (Reason: nausea and vomiting) Qty: 10 0RF dicyclomine 20 mg tablet 20 mg PO QID PRN (Reason: abdominal discomfort) Qty: 20 0RF Follow-up/Referrals: PHYSICIAN,AGRICULTURAL ENGINEERING TECHNICIAN [Primary Care Provider] - Aidan Abdalla MD [Physician] - Time of Disposition: 22:07
[2024-10-06 22:32] VITALS: BP 140/95; PULSE 64; RESP 12; O2SAT 96
== END 2024-10-06 22:33 | disposition home or self-care (01) ==
PROVIDERS: Emergency Provider Emergency Medicine
DX: R10.12 Left upper quadrant pain (principal); R91.8 Other nonspecific abnormal finding of lung field; R63.1 Polydipsia
CPT/HCPCS: 36415; 74177; 80053; 81003; 82948; 83690; 85025; 99284; Q9967

== ENCOUNTER 2024-11-03 12:42 | Outpatient (CLI) | payer OTHER, SELFPAY ==
--- NOTE | ~2024-11-03 | XR_ITS ---
XR chest 2V 11/03/2024 12:59 Indication: Bilateral arm numbness Procedure: 2 view chest Comparison: No prior studies for comparison. Findings: There are small nodular opacities in the right mid and left lower thorax. Heart size normal . No focal air space disease, pulmonary edema, pleural effusion or suspected pneumothorax. No acute o sseous abnormality. Impression: 1: Small bilateral nodular opacities. Correlation with CT chest recommended to exclude parenchymal no dule. Reviewed, dictated and finalized at location A. Impression: 1: Small bilateral nodular opacities. Correlation with CT chest recommended to exclude parenchymal nodule.
--- NOTE | ~2024-11-03 | XR_ITS ---
EXAM: [id number]_CR DATE: 11/03/2024 12:59 HISTORY: Bilateral arm numbness . COMPARISON: None available. FINDINGS: Craniocervical association and atlantoaxial joint are aligned. No prevertebral soft tissue swelling. Vertebral bodies are aligned. Vertebral body heights are maintained. Mild multilevel jorge nal osteophytosis. Mild multilevel facet hypertrophy. IMPRESSION: No acute fracture or traumatic malalignment detected in the cervical spine. Mild multilev el degenerative disc disease and facet arthropathy. Reviewed, dictated and finalized at location K. IMPRESSION: No acute fracture or traumatic malalignment detected in the cervica l spine. Mild multilevel degenerative disc disease and facet arthropathy.
--- OUTSIDE RECORDS SUMMARY | 2024-11-03 12:55 | XMS_ITS | Encounter Summary ---
Author Organization [facility] Healthcare Address [address] [place] [address] Care Team Providers Care Mechanical Integrity Engineer Name Role Phone Aidan Abdalla MD Primary Care Provider [phone] Reason for Referral * MRI/CAT/PET Scan (Routine) - Pending Review Specialty Diagnoses / Procedures Referred By Wyatt t Referred To Contact Radiology Diagnoses Lung nodules Procedures CT Chest WO Contrast Carito Herbert MD [address] [facility] [address] [place] [address] Phone: tel: fax: [place] [address] [place] [address] Referral ID Status Reason Start Date Expiration Date V isits Requested Visits Authorized [id number] Pending Review 11/03/2024 12/03/2025 1 1 Reason for Visit * Reason Comments Establish Care * Consultation (Routine) - Closed Specialty Diagnoses / Procedures Referred By Contac t Referred To Contact Pulmonary Disease / Pulmonology Diagnoses Lung nodules Aidan Abdalla MD [address] [place] [address] Phone: tel: fax: [facility] Pulmonology [address] [facility] [address] [place] [address] Phone: tel: fax: Referral ID Status Reason Start Date Expiration Date V isits Requested Visits Authorized [id number] Closed Specialty Services Required 10/20/2024 11/19/2025 1 1 Encounter Details Date Type Department Care Team (Late st Contact Info) Description 11/03/2024 9:15 AM CDT Office Visit [facility] Pulmonology [facility] [address] [phone] Carito Herbert MD [address] [place] [address] Exposure to silica (Primary Dx); Lung nodules Social History Tobacco Use Types Packs/Day Years Used Date Smoking Tobacco: Never Smokeless Tobacco: Never Tobacco Cessation:Counseling Given: Not Answered AUDIT-C Answer Date Recorded Q1: How often do you have a drink containing alcohol? Never 11/03/2024 Q2: How many drinks containi ng alcohol do you have on a typical day when you are drinking? Patient does not drink Q3: How often do you have si x or more drinks on one occasion? Never 11/03/2024 Sex and Gender Information Value Date Recorded Sex Assigned at Not on file Legal Sex Male 10:38 AM CDT Gender Identity Not on file Sexual Orientation Not on file documented as of this encounter Last Filed Vital Signs Vital Sign Reading Time Taken Comments Blood Pressure 120/80 11/03/2024 9:24 AM CDT Pulse 56 11/03/2024 9:24 AM CDT Temperature 36.5 C (97.7 F) 11/03/2024 9:24 AM CDT Respiratory Rate 16 11/03/2024 9:24 AM CDT Oxygen Saturation 98% 11/03/2024 9:24 AM CDT Inhaled Oxygen Concentration - - Weight 99.1 kg (218 lb 6.4 oz) 11/03/2024 9:24 A M CDT Height 180.3 cm (5' 11 ) 11/03/2024 9:24 AM CDT Body Mass Index 30.46 11/03/2024 9:24 AM CDT documented in this encounter Functional Status * Audit-C Score Answer Date of Assessment Author 0 11/03/2024 9:26 AM CDT Tru Thompson MA * Question Answer Date of Assessment Author Q1: How often do you have a drink containing alcohol? Never 11/03/2024 9:26 AM CDT Jenelle Thompson MA Q2: How many drinks containing alcohol do you have on a typical day when you are drinking? Patient does not drink 11/03/2024 9:26 AM CDT Jenelle Thompson MA Q3: How often do you have six or more drinks on one occasion? Never 11/03/2024 9:26 AM CDT Jenelle Thompson MA documented as of this encounter Progress Notes * Carito Herbert MD - 11/03/2024 9:15 AM CDT Images from the original note were not included. This patient has verbally consented to recording this visit in order to utilize AI technology in generating this note. [facility] NOTE Visit Date: 11/03/2024 Referring Physician: Aidan Abdalla MD Chief complaint/Consult indication: Lung nodules HPI: Viraj Lua is a 54 y.o. male History of Present Illness Viraj Lua is a 54 year old male who presents with nodules found on a CT scan of the abdomen. Hewas referred for evaluation of nodules found on a CT scan. The nodules were discovered incidentally during a CT scan of the abdomen, initially performed due to pain under his left rib associated with nausea. The scan revealed nodules in the lower portions ofthe lungs, with the largest measuring approximately 8 millimeters. He experiences respiratory symptoms, including chest tightness when breathing, which is currently present. He is recovering from a cold, and the chest tightness did not predate the cold. No history of smoking. 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 He does not typically wear a mask while working. Never tobacco use. OBJECTIVE: Physical Exam: Vitals BP 120/80 (BP Location: Right arm, Patient Position: Sitting) Pulse 56 Temp 36.5 ??C (97.7 ??F) Resp 16 Ht 180.3 cm (5' 11 ) Wt 99.1 kg (218 lb 6.4 oz) SpO2 98% BMI 30.46 kg/m?? Physical Exam PULMONARY: Clear to auscultation bilaterally, no wheezing or crackles, breathing comfortably on room air MSK: No obvious joint abnormalities VASCULAR: No pitting edema Data Review: Labs, test results, and/or radiographic data personally reviewed and my personal interpretation is: Results RADIOLOGY CT personally reviewed and interpreted Abdominal CT: 8 mm nodule in lower lung, multiple solid nodules in 6-8 mm range, possible scarring or atelectasis at bases CBC w/auto diff: No results found for: OLIVERIO , ANCA , ARTEMIO , RF , CRP , SEDRATE , CK , LABIMMUE , EOSABS , EOSPCT , ALDOLASE , MYOSITISIII ASSESSMENT /PLAN Problems/ Diagnoses addressed during this visit Lung nodules Silica exposure - Incidentally noted on CT scan of abdomen with the largest being 8 mm - Based on Fleischner guidelines we will repeat CT scan in 6 months after discussion with patient -Did discuss that we could repeat a CT scan of entire chest at this point in time to assess for additional larger nodules but both him and I are comfortable with repeating CT scan in 6 months -Will keep an eye on his current respiratory symptoms and if they linger after recovering from his acute viral illness we will consider PFTs Pulmonary Maintenance: Vaccines: Recommend patients receive flu vaccine annually and COVID, pneumonia, and RSV vaccines per CDC guidelines based on their specific lung disease. Recommended https://www.cdc.gov/vaccines/by-age/index.html to help determine which vaccines should be administered by their pharmacist. Lung Cancer Screening: Not applicable Carito Herbert MD CC: Aidan Abdalla MD documented in this encounter Plan of Treatment Scheduled Orders Name Type Priority Associated Diagnoses Orde r Schedule CT Chest WO Contrast Imaging Schedule Routine, Read Routine (OP Routine) Lung nodules Expected: 05/05/2025, Expires: 11/03/2025 documented as of this encounter Visit Diagnoses Diagnosis Exposure to silica- Primary Lung nodules Other diseases of lung, not elsewhere classified documented in this encounter Orders Outpatient Referral Count Last Ordered Date Fir st Ordered Date AMB REFERRAL TO PULMONOLOGY 1 11/03/2024 documented in this encounter Care Teams Mechanical Integrity Engineer Relationship Specialty Start Date End Date Aidan Abdalla MD [address] [facility] [address] [place] [address] PCP - General Emergency Medicine 10/20/24 documented as of this encounter
--- OUTSIDE RECORDS SUMMARY | 2024-11-03 12:55 | XMS_ITS | Clinical Summary ---
Author Organization [facility] edo Address [address] [place] [address] Care Team Providers Care Poultry Eviscerator Name Role Phone Unavailable Primary Care Provider Unavailabl e Source Comments [facility] edo,non-owned Affiliates and Associated Physician Practices is amultiple site organization consisting of ambulatory clinics and hospital sitesin [place], [place], [place] and [place]. This disclosure is being madepursuant to the Care Everywhere program and may not contain all information available regarding this patient. Last updated 18.[facility] Allergies No known active allergies Medications * [...] VACCINE (1 - 2023-2 5 season) 2024 DEPRESSION SCREENING 08/03/2024 INFLUENZA VACCINE (Season Ended) 2025 06/26/20 HIB VACCINE Aged Out No longer eligi ble based on patient's age to complete this topic HPV VACCINE Aged Out No longer eligi ble based on patient's age to complete this topic MENINGOCOCCAL (Group B) VACC INE SHARED DECISION-MAKING Aged Out No longer eligibl e based on patient's age to complete this topic MENINGOCOCCAL GROUPS A/C/Y/W VACCINE Aged Out No longer eligible b ased on patient's age to complete this topic [...] METABOLIC PANEL (11/20/2020 10:50 AM CDT) Pathologist [facility] [place] Glucose 103 65 - 139 mg/dL [facility] [...] 46 U/L [facility] Comment: Test Performed at: [address] [address] GEOFF CUETO MD Blood BLOOD SPECIMEN / Unknown 11/20/2020 10:50 AM CDT 11/20/2020 10:54 AM CDT Bonnie Juarez PA-C LAB - CHEMISTRY O RDERABLES [facility] [address] [place] [address] from Last 3 Months or Most Recently Relevant to Health Maintenance
--- OUTSIDE RECORDS SUMMARY | 2024-11-03 12:55 | XMS_ITS | CONTINUITY OF CARE DOCUMENT ---
Author Name guerda croft Address Unknown Organization [facility] Address [id number] [place] [address] [address] [place] [address] Phone [phone] Care Team Providers Care Pulp Grinder And Blender Name Role Phone Nguyễn Quinn MD Unavailable [phone] GREER LANGE MD Unavailable [phone] GREER LANGE MD Unavailable [phone] PROBLEMS Condition Status Date Provider Notes CAD completed - Layla Roy HAND TACKER Hx of MT completed - Layla Ryo HAND TACKER Cardiology examination active Layla garcia HAND TACKER Elevated blood glucose active Layla garcia HAND TACKER Family hx of ischemic heart (CAD), premature active Layla Roy HAND TACKER Pulmonary nodule active Layla Roy N P VALERIA, suspected active Layla Roy HAND TACKER Elevated blood pressure active Layla pace HAND TACKER ENCOUNTERS Date Type Provider Location Encounter Diag nosis - In-person encounter Office Visit Layla Roy HAND TACKER [facility] CADHx of MICardiology examinationElevated blood glucoseFamily hx of ischemic heart (CAD), prematurePulmonary noduleOSA, suspectedElevated blood pressure VITAL SIGNS Date Observation Value Provider Body Mass Index (Ratio) 30.68 kg/m2 Velia Phoenix blood pressure, diastolic 92 mm[Hg] Radha nkLogic blood pressure, systolic 132 mm[Hg] Courtney kLogic blood pressure, diastolic 92 mm[Hg] Nikita Briggs blood pressure, systolic 132 mm[Hg] Yen Briggs pulse rate 64 /min Sulma negrete oxygen saturation, oximetry 96 % Sulma Briggs blood pressure, cuff size regular Nikita Briggs weight E&M 220 [lb_av] Sulma Morales s height E&M 71 [in_i] Sulma negrete HISTORY OF MEDICATION USE No Known Medication INSURANCE PROVIDERS Payer name Policy type / Coverage type [place] [employer] ID [id number] ADVANCE DIRECTIVES Name Date DISCUSSED - NO DECISION MADE TREATMENT PLAN Date Name Performer Cardiology: m ultiple nodules, largest 8mm s cheduled to see pulm Layla Roy HAND TACKER Cardiology: c heck ihs Layla Roy HAND TACKER Cardiology: e levated on cmp in er, check a1c Layla Roy HAND TACKER Date Name Sleep Study Home CT, Coronary Calcium Score Microalb/Creatinine Urine, Random HEMOGLOBIN A1c Vitamin D, 25-Hydrox y TSH, free T4, total T3 LIPID PANEL HISTORY OF PROCEDURES Procedure Date Procedure Name Provider Procedure Notes S tatus EKG Nguyễn Quinn MD completed
--- OUTSIDE RECORDS SUMMARY | 2024-11-03 12:55 | XMS_ITS | Clinical Summary ---
Author Organization [facility] Address [address] [address] Phone Care Team Providers Care Patternmaker Bench Name Role Phone Aidan Abdalla MD Primary Care Provider [phone] Social History Tobacco Use Types Packs/Day Years Used Date Smoking Tobacco: Never Assessed Sex and Gender Information Value Date Recorded Sex Assigned at Not on file Gender Identity Not on file Sexual Orientation Not on file Plan of Treatment Upcoming Encounters Date Type Department Care Team ([facility] st Contact Info) Description 12/13/2024 1:20 PM CDT Office Visit [facility] [address] [facility] [address] [place] [address] Juan Diego Hough MD [address] [address] Health Maintenance Due Date Last Done Comments Influenza Vaccine (#1) 2024 Care Teams Patternmaker Bench Relationship Specialty Start Date End Date Aidan Abdalla MD PCP - General 10/24/24
--- OUTSIDE RECORDS SUMMARY | 2024-11-03 12:55 | XMS_ITS | Clinical Summary ---
Author Organization [facility] Address [address] [place] [address] Care Team Providers Care [employer] Principal Name Role Phone Aidan Abdalla MD Primary Care Provider [phone] Allergies No known active allergies Medications No known medications Active Problems No known active problems Encounters Date Type Department Care Team Description 11/03/2024 9:15 AM CDT Office Visit [facility] [address] [facility] [address] [place] [address] Carito Herbert MD Exposure to silica (Primary Dx); Lung nodules 10/06/2024 8:45 PM MANAGER FIELD SERVICE - 10/06/2024 11:59 PM MANAGER FIELD SERVICE Hospital Encounter [facility] [employer] [address] [place] [address] Discharge Disposition: Discharge to home or self care from Last 3 Months Family History Medical History Relation Name Comments COPD Mother Heart disease Paternal Grandfather Diabetes Paternal Grandmother Relation Name Status Comments Father Maternal Grandfather Maternal Grandmother Mother Paternal Grandfather Paternal Grandmother Social History Tobacco Use Types Packs/Day Years [...] on file Sexual Orientation Not on file Obstetrics History Last Filed Vital Signs Vital Sign Reading [...] Mass Index 30.46 11/03/2024 9:24 AM CDT Plan of Treatment Health Maintenance Due Date Last Done Comments Colon Cancer Screening-Colonoscopy 1972 Depression Screening 1972 Hepatitis C Screening 1972 Prostate Cancer Screening-PSA 1972 DTaP/Tdap/Td Vaccine (1 - Tdap) 10/23/1983 Hepatitis B Screening 1990 Regular Well Visit/Exam 18-64 1990 Zoster Vaccine (1 of 2) 2022 Covid-19 Vaccine ( - 2023-2 5 season) 2024 07/20/2021, 12/04/2020, 11/11/2020 Influenza Vaccine (Season Ended) 2025 06/26/2020 Pneumococcal vaccine <65 Aged Out No longer eligible based on patient's age to complete this topic Procedures Procedure Name Priority Date/Time Associated Diagnosis Comments CT BODY OUTSIDE REFERENCE Routine 10/06/2024 8:45 PM MANAGER FIELD SERVICE from Last 3 Months Results * CT Body Outside Reference (10/06/2024 8:45 PM MANAGER FIELD SERVICE) Narrative LEANDRO_NATHEN_MICHELLE_MHE - 10/26/2024 2:35 PM CDT This order has been auto-finalized and does not contain a result. us Provider Transcribed Order IMG CT PROCEDURES Fin al Result RAD_CLARIO_MHB_MHE from Last 3 Months Insurance [facility] Care Teams [employer] Principal Relationship Specialty Start Date End Date Aidan Abdalla MD [address] [place] [id number] PCP - General Emergency Medicine 10/20/24
--- OUTSIDE RECORDS SUMMARY | 2024-11-03 12:55 | XMS_ITS | Referral Summary ---
Author Organization [facility] Address [address] [place] [address] Care Team Providers Care Bus Monitor Name Role Phone Aidan Abdalla MD Primary Care Provider [phone] Encounters Date Type Department Care Team Description 11/03/2024 9:15 AM CDT Office Visit [facility] Pulmon[facility] [address] [facility] [address] [place] [address] Carito Herbert MD Exposure to silica (Primary Dx); Lung nodules 10/06/2024 8:45 PM JOB COUNSELOR - 10/06/2024 11:59 PM JOB COUNSELOR Hospital Encounter [facility] [employer] [address] [place] [address] Discharge Disposition: Discharge to home or self care from Last 3 Months Allergies No known active allergies Medications No known medications Active Problems No known active problems Social History Tobacco Use Types Packs/Day Years [...] 11/03/2024 9:24 AM CDT Plan of Treatment Not on file Procedures Procedure Name Priority Date/Time Associated Diagnosis Comments CT BODY OUTSIDE REFERENCE Routine 10/06/2024 8:45 PM JOB COUNSELOR from Last 3 Months Results * CT Body Outside Reference (10/06/2024 8:45 PM JOB COUNSELOR) Narrative LEANDRO_NATHEN_MHB_MHE - 10/26/2024 2:35 PM CDT This order has been auto-finalized and does not contain a result. us Provider Transcribed Order IMG CT PROCEDURES Fin al Result RAD_CHEMOIO_MHB_MHE from Last 3 Months Insurance [facility] CMR Care Teams Bus Monitor Relationship Specialty Start Date End Date Aidan Abdalla MD [address] [place] [id number] PCP - General Emergency Medicine 10/20/24
[2024-11-03 13:26] LABS: Hematocrit 42.3 % (42.0-52.0); Mean Corpuscular HGB Conc 33.1 g/dl (32-36); Mean Corpuscular Hemoglobin 31.3 pg (26-34); Mean Corpuscular Volume 94.6 fl (80-100); Mean Platelet Volume 9.3 fl (7.4-10.4); Platelet Count Result 261 k/mm3 (150-375); Red Blood Count 4.47 M/mm3 (4.6-6.20); White Blood Count 4.2 K/mm3 (4.5-10.0)
[2024-11-03 13:35] LABS: Hemoglobin A1C 6.6 % (<5.7)
[2024-11-03 13:37] LABS: Cholesterol 236 mg/dL (0-200); HDL Direct 28 mg/dL; Triglycerides 307 mg/dL (<150)
[2024-11-03 13:49] LABS: LDL Cholesterol Direct 143 mg/dL
[2024-11-03 13:59] LABS: Free T4 Free Thyroxine 0.87 ng/dL (0.78-2.19)
[2024-11-03 14:07] LABS: Prostate Specific Antigen 0.3 ng/mL (< OR = 4.0)
[2024-11-03 14:42] LABS: Folic Acid 10.6 ng/mL (2.76->20)
[2024-11-03 16:37] LABS: Creatinine Urine 126.6 mg/dL
[2024-11-03 16:44] LABS: MALB Creatinine Ratio 5.4 mg/g (0-30); Microalbumin Urine Random 6.8 mg/L (0-16.7)
== END 2024-11-03 12:43 | disposition home or self-care (01) ==
PROVIDERS: PCP Emergency Medicine; Visit Provider Emergency Medicine
DX: Z00.00 Encounter for general adult medical examination without abnormal findings (principal); R91.8 Other nonspecific abnormal finding of lung field; M47.812 Spondylosis without myelopathy or radiculopathy, cervical region; I25.10 Atherosclerotic heart disease of native coronary artery without angina pectoris; R79.9 Abnormal finding of blood chemistry, unspecified; R20.0 Anesthesia of skin
CPT/HCPCS: 36415; 71046; 72040; 80061; 82043; 82607; 82746; 83036; 84153; 84439; 84443; 85027